=== PATIENT | female | born 1990 | race Caucasian/White ===

== ENCOUNTER 2018-03-06 16:45 | Emergency (ER) | payer OTHER ==
--- NOTE | 2018-03-06 16:52 | PDOC ---
Rapid Medical Evaluation Chief Complaint: Back Pain Time Seen by Provider: 03/06/18 16:49 Medical Evaluation: 03/06/18 16:50 I have performed a brief in person evaluation of this patient. The patient presents with a CC of: Back pain HPI: Pt is a 27 YO female who states of back pain x 1 day. She has a hx of spinal fusion. No injury or trauma. No fever or hx of IV drug use. Pt takes Gabapentin, OTC meds. Pt describes the pain as a throb, 01/26. PE: Skin: Clear Heart: RRR Lungs: Clear MS: Moves all extremities without difficulty. Pt has pain on the paraspinous muscles in the thoracic region. Able to ambulate without difficulty. Neuro: Appropriate affect, Psych: appropriate affect I have ordered: nothing at this time. The patient will proceed to [facility] for further evaluation.
[2018-03-06 16:58] VITALS: BP 121/74; PULSE 94; TEMP 98.7; BMI 38.7
[2018-03-06] MEDS ORDERED: KETOROLAC TROMETHAMINE 60 MG/2 ML VIAL IM ONE (17:11)
--- NOTE | 2018-03-06 17:15 | PDOC ---
History of Present Illness - General Chief Complaint: Back Pain Stated Complaint: BACK PAIN Time Seen by Provider: 03/06/18 16:49 - History of Present Illness Initial Comments: 27-year-old female presents for evaluation of upper back pain 2 days. She states her pain started without any precipitating traumatic event. She denies radicular symptoms or loss of lateral bladder function. She does have a history of the lumbar spinal fusion back in 2010. She has no pain in her lower back. 03/06/18 17:13 Past History - Past Medical History Allergies/Adverse Reactions: Allergies Allergy/AdvReac Type Severity Reaction Status Date / Time No Known Allergies Allergy Verified 03/06/18 16:51 Home Medications: Ambulatory Orders Cyclobenzaprine HCl [Flexeril 10 mg] 10 mg PO HS PRN #10 tablet 03/06/18 COPD: No DVT: No - Surgical History Cholecystectomy: Yes - Immunization History Immunization Up to Date: Yes - Suicide/Smoking/Psychosocial Hx Smoking History: Never smoked Have you smoked in the past 12 months: No Information on smoking cessation initiated: No Hx Alcohol Use: No Drug/Substance Use Hx: No Substance Use Type: None Review of Systems - Review of Systems Musculoskeletal: Yes: See HPI, Back Pain *Physical Exam - Vital Signs Last Vital Signs Temp Pulse Resp BP Pulse Ox 98.7 F 94 H 16 121/74 100 03/06/18 16:51 03/06/18 16:51 03/06/18 16:51 03/06/18 16:51 03/06/18 16:51 - Physical Exam Comments: Thoracic spine skin color and temperature are normal. Range of motion is slightly decreased with pain. There is no palpable parathoracic musculature spasm however there is associated tenderness on the left. She has 5 out of 5 strength in bilateral upper extremities with a negative Spurling maneuver. No gross sensorimotor deficits. She's neurovascular intact. 03/06/18 17:13 Medical Decision Making - Medical Decision Making Thoracic strain, I will treat her with Toradol in the emergency room. She is far out enough from her lumbar spine fusion that Toradol is safe for a one time dose. If she is relieved with that I will give her Flexeril 03/06/18 17:14 03/06/18 17:38 Pain improved s/p torodol *DC/Admit/Observation/Transfer Diagnosis at time of Disposition: Strain of fascia at thorax level - Discharge Dispostion Disposition: HOME Condition at time of disposition: Improved Decision to Admit order: No - Referrals Referrals: Luca Monreal MD [Primary Care Provider] - Keon Fields MD [Staff Physician] - - Patient Instructions Printed Discharge Instructions: Muscle Strain, DI for Muscle Strain Additional Instructions: Return to the emergency room should symptoms worsen or go unresolved Called in a muscle relaxer for a which one tablet before bedtime. Please follow- up with spine surgery as well as pain management for further evaluation and treatment options. May continue Tylenol and Motrin at home for pain as directed - Post Discharge Activity
[2018-03-06] MEDS ORDERED: KETOROLAC TROMETHAMINE 60 MG/2 ML VIAL ONE (17:17)
== END 2018-03-06 17:45 | disposition home or self-care (01) ==
LOC: JERFT 16:45
PROC: 3E0233Z Introduction of Anti-inflammatory into Muscle, Percutaneous Approach (ICD-10-PCS; principal; 2018-03-06)
DX: S29.012A Strain of muscle and tendon of back wall of thorax, initial encounter (principal); X58.XXXA Exposure to other specified factors, initial encounter; Y93.89 Activity, other specified; Y92.018 Other place in single-family (private) house as the place of occurrence of the external cause; Y99.8 Other external cause status; Z98.1 Arthrodesis status
CPT/HCPCS: 96372; 99281-25

== ENCOUNTER 2018-11-21 12:03 | Emergency (ER) | payer OTHER | END 2018-11-21 12:49 | disposition home or self-care (01) | LOC: JERFT 12:03 ==

== ENCOUNTER 2020-01-03 11:38 | Emergency (ER) | payer OTHER ==
[2020-01-03 11:53] VITALS: BP 136/89; PULSE 82; TEMP 98.2; BMI 47.0
[2020-01-03] MEDS ORDERED: KETOROLAC TROMETHAMINE 30 MG/1 ML VIAL IM ONE (12:18)
[2020-01-03] MEDS ORDERED: METHOCARBAMOL 500 MG TABLET PO ONE (12:18)
[2020-01-03] MEDS ORDERED: KETOROLAC TROMETHAMINE 30 MG/1 ML VIAL ONE (12:20)
[2020-01-03] MEDS ORDERED: METHOCARBAMOL 500 MG TABLET ONE (12:20)
--- NOTE | 2020-01-03 12:27 | PDOC ---
History of Present Illness - General Chief Complaint: Back Pain Stated Complaint: Back Pain Time Seen by Provider: 01/03/20 12:11 History Source: Patient Exam Limitations: Clinical Condition - History of Present Illness Initial Comments: 01/03/20 12:22 Patient with past medical history of spinal fusion 2 years ago due to herniated disc on L4-5 presented with complaint of sacrum pain status post slip and fall in the bathtub 3 days ago hitting her tailbone on the bathtub. Patient report going to [facility] when accident happened no x-ray was done but no results were discussed with her. Patient being treated by pain management for chronic back pain on gabapentin and Flexeril. Patient report: Pain management provider and was advised to come back to emergency room to have sacral x-ray done to make sure there is no sacral bone or coccyx fracture. Patient reported being discharged home on p.o. Toradol from [facility] which has not been helped with the pain. Patient reported increased pain when she states. Denies any other symptoms. Denies hitting her head when she fell Occurred: reports: other (3 days) Past History - Medical History Allergies/Adverse Reactions: Allergies Allergy/AdvReac Type Severity Reaction Status Date / Time No Known Allergies Allergy Verified 01/03/20 11:53 Home Medications: Ambulatory Orders Gabapentin [Neurontin] 600 mg PO BID 02/22/19 Escitalopram Oxalate [Lexapro -] 10 mg PO DAILY 03/28/19 Omeprazole 20 mg PO DAILY 03/28/19 Phentermine HCl [Adipex-P] 37.5 mg PO DAILY 03/28/19 Cyclobenzaprine HCl 10 mg PO BID PRN #60 tablet 12/17/19 Ergocalciferol (Vitamin D2) [Vitamin D2] 50,000 unit PO Q7D #4 capsule 12/17/19 Lidocaine HCl [Aspercreme] 76.5 gm TP BID PRN #1 tube 12/17/19 Anemia: Yes Asthma: No Cancer: No Cardiac Disorders: No CVA: No COPD: No CHF: No DVT: No Diabetes: No GI Disorders: Yes (GERD, IBS) Disorders: No HTN: No Hypercholesterolemia: No Liver Disease: No Seizures: No Thyroid Disease: No - Surgical History Cholecystectomy: Yes Orthopedic Surgery: Yes (L5-S1 fusion) - Immunization History Immunization Up to Date: Yes - Psycho-Social/Smoking History Smoking History: Never smoked Have you smoked in the past 12 months: No Information on smoking cessation initiated: No - Substance Abuse Hx (Audit-C & DAST Scrn) How often the patient has a drink containing alcohol: Never Score: In Men: 4 or > Positive; In Women: 3 or > Positive: 0 Screen Result (Pos requires Nsg. Audit-10AR): Negative In the last yr the pt used illegal drug/Rx for NonMed reason: No Score: Yes response is considered Positive: 0 Screen Result (Positive result requires Nsg. DAST-10): Negative Trauma Specific PMHX - Complaint Specific PMHX Arthritis: No Review of Systems - Review of Systems Able to Perform ROS?: Yes Is the patient limited Romansh proficient: No Constitutional: No: Chills, Fever, Malaise HEENTM: No: Symptoms Reported, See HPI, Eye Pain, Blurred Vision, Tearing, Recent change in vision, Double Vision, Cataracts, Ear Pain, Ocular Prothesis, Ear Discharge, Nose Pain, Nose Congestion, Tinnitus, Nose Bleeding, Hearing Loss, Throat Pain, Throat Swelling, Mouth Pain, Dental Problems, Difficulty Swallowing, Mouth Swelling, Other Respiratory: No: Symptoms reported, See HPI, Cough, Orthopnea, Shortness of Breath, SOB with Exertion, SOB at Rest, Stridor, Wheezing, Productive cough, Hemoptysis, Other Cardiac (ROS): No: Symptoms Reported ABD/GI: No: Symptoms Reported Musculoskeletal: Yes: Symptoms Reported, See HPI, Back Pain (sacrum pain) Integumentary: No: Symptoms Reported Neurological: No: Symptoms reported All Other Systems: Reviewed and Negative *Physical Exam - Vital Signs Last Vital Signs Temp Pulse Resp BP Pulse Ox 98.2 F 82 19 136/89 100 01/03/20 11:49 01/03/20 11:49 01/03/20 11:49 01/03/20 11:49 01/03/20 11:49 - Physical Exam 01/03/20 12:26 GENERAL: Well developed, well nourished. Awake and alert in mild acute distress. PULMONARY: No evidence of respiratory distress. MUSCULOSKELETAL : Moderate tenderness to lower sacrum and coccyx. No tenderness to lumbar spine or thoracic spine. Lumbar radiculopathy SKIN: Warm and dry. Normal capillary refill. No bruising or ecchymosis NEUROLOGICAL: Alert, awake, appropriate. No motor deficits in the lower extremities. Gait is normal without ataxia. PSYCHIATRIC: Cooperative. Good eye contact. Appropriate mood and affect. General Appearance: Yes: Nourished, Appropriately Dressed, Apparent Distress, Mild Distress ED Treatment Course - RADIOLOGY Radiology Studies Ordered: Category Date Time Status COCCYX [RAD] Stat Radiology 01/03/20 12:17 Ordered SACRUM [RAD] Stat Radiology 01/03/20 12:17 Ordered Medical Decision Making - Medical Decision Making 01/03/20 12:24 Patient with past medical history of spinal fusion 2 years ago due to herniated disc on L4-5 presented with complaint of sacrum pain status post slip and fall in the bathtub 3 days ago hitting her tailbone on the bathtub. Patient report going to [facility] when accident happened no x-ray was done but no results were discussed with her. Patient being treated by pain management for chronic back pain on gabapentin and Flexeril. Patient report: Pain management provider and was advised to come back to emergency room to have sacral x-ray done to make sure there is no sacral bone or coccyx fracture. Patient reported being discharged home on p.o. Toradol from [facility] which has not been helped with the pain. Patient reported increased pain when she states. Denies any other symptoms. Denies hitting her head when she fell. Denies saddle paresthesia, urinary or fecal incontinence Exam significant for moderate tenderness to lower sacrum and coccyx. No tenderness to lumbar spine. No radiculopathy. Patient symptoms likely sacralor coocyx contusion versus fracture. X-ray of sacrum and coccyx ordered to rule out fracture. Toradol 30 mg IM and Robaxin 5 mg p.o. ordered for pain. Patient will be discharged follow-up with neuro small engine specialist if no acute findings on x-ray with advised to continue home p.o. Toradol and do hot compresses and use sacral doughnut to help sit to prevent pain. 01/03/20 12:46 X-ray of sacrum and coccyx shows no acute fracture. Patient stable for discharge to continue home Toradol and Flexeril with advised to do hot compresses with neuro spine follow-up Discharge - Discharge Information Problems reviewed: Yes Clinical Impression/Diagnosis: Sacral contusion Qualifiers: Encounter type: initial encounter Qualified Code(s): S30.0XXA - Contusion of lower back and pelvis, initial encounter Fall Qualifiers: Encounter type: initial encounter Qualified Code(s): W19.XXXA - Unspecified fall, initial encounter Condition: Stable Disposition: HOME - Admission No - Follow up/Referral Referrals: Bar Christensen MD, [facility] [Staff Physician] - - Patient Discharge Instructions Patient Printed Discharge Instructions: Sacroiliac Joint Pain Additional Instructions: X-ray of your back and sacrum shows no acute fracture as compared to x-ray from 2018 which showed old fracture from them. Continue with home pain meds as prescribed. Use sacrum doughnuts as discussed to help with sitting. Follow-up referred neuro small engine specialist - Post Discharge Activity
== END 2020-01-03 13:07 | disposition home or self-care (01) ==
LOC: JERFT 11:38
PROC: 3E023GC Introduction of Other Therapeutic Substance into Muscle, Percutaneous Approach (ICD-10-PCS; principal; 2020-01-03)
DX: S30.0XXA Contusion of lower back and pelvis, initial encounter (principal); W18.2XXA Fall in (into) shower or empty bathtub, initial encounter
CPT/HCPCS: 72220-TC-FY; 99284-25